=== PATIENT | male | born 1945 | race Caucasian/White ===

== ENCOUNTER 2016-07-14 07:31 | Day surgery (SDC) | payer OTHER ==
[~2016-07-14 07:31] MED LIST: ACETAMINOPHEN 325 MG TABLET PO PRN; ACETYLCHOLINE CHLORIDE 20 DROP KIT IO PRN; BUPIVACAINE HCL/PF 30 ML VIAL IJ PRN; CYCLOPENTOLATE HCL 20 DROP BTL RIGHTEYE PRN; DEXTROSE 5%-0.5 NORMAL SALINE 1,000 ML IV PRN; EPINEPHrine 1 MG/ML AMPUL IO PRN; HYALURONATE SODIUM 0.4 ML DISP.SYRIN IO PRN; HYALURONATE SODIUM 0.85 ML DISP.SYRIN IO PRN; LIDOCAINE HCL/PF 200 MG/5 ML AMPUL TP PRN; LIDOCAINE HCL/PF 5 ML VIAL IO PRN; NORMAL SALINE 3 ML BOX IV PRN; TETRACAINE HCL 150 DROP BTL OP PRN
--- OUTSIDE RECORDS SUMMARY | 2016-07-14 07:36 | XMS REPORT | Continuity of Care Document ---
:1945 Author Organization [facility] [place] [address] Care Team Providers Name Role Phone Kirsty Bauman Primary Care Provider [phone] Source Comments This disclosure is being made pursuant to the Virtual Call Center program and may contain all information available regarding this patient.[facility] Active Allergies and Adverse Reactions Allergen Noted Date Severity Reactions Comments Tylenol 12/12/2015 Other (See Comments) With codiene Current Medications Be aware that medications may not be up to date as of this document. Alwaysverify current medications with the patient. Prescription Sig. Disp. Refills Start Date End Date Status lisinopril (PRINIVIL,ZESTRIL) Take 20 mg by Active 20 MG tablet mouth 2 (two) times daily. simvastatin (ZOCOR) 20 MG Take 20 mg by Active tablet mouth nightly. gabapentin (NEURONTIN) 300 MG Take 300 mg by 12/04/2015 Active capsule mouth 2 (two) times daily. nabumetone (RELAFEN) 750 MG Take 750 mg by 12/11/2015 Active tablet mouth nightly. omeprazole (PRILOSEC) 20 MG Take 20 mg by 01/21/2016 Active capsule mouth daily. hydrochlorothiazide 04/18/2016 Active (HYDRODIURIL) 12.5 MG tablet Active Problems Not on file Most Recent Encounters Date Type Specialty Providers Description 07/10/2016 Office Visit Neurosurgery Trevon Cote Jr., Spinal stenosis , lumbar MD region, without neurogenic claudication (Primary Dx); Osteoarthritis of spine with radiculopathy, lumbar region 06/12/2016 Office Visit Neurosurgery Trevon Cote Jr., Spinal stenosis , lumbar MD region, without neurogenic claudication (Primary Dx); Osteoarthritis of spine with radiculopathy, lumbar region 06/09/2016 Telephone Neurosurgery Brenda Bowling, [employer] Other Social History Tobacco Use Types Packs/Day Years Used Date Current Every Day Smoker Smokeless Tobacco: Former User Tobacco Cessation:Ready to Quit: No; Counseling Given: Yes Comments: Alcohol Use Drinks/Week oz/Week Comments Yes Last Filed Vital Signs Vital Sign Reading Time Taken Blood Pressure 138/80 07/10/2016 2:59 PM CDT Pulse 88 07/10/2016 2:59 PM CDT Temperature 36.3 C (97.4 F) 12/12/2015 11:03 AM CDT Respiratory Rate 12 07/10/2016 2:59 PM CDT Height 1.753 m (5' 9") 07/10/2016 2:59 PM CDT Weight 70.308 kg (155 lb) 07/10/2016 2:59 PM CDT Body Mass Index 22.88 07/10/2016 2:59 PM CDT Oxygen Saturation - - Plan of Care Date Type Specialty Providers Description 09/29/2016 Appointment Neurosurgery Trevon Cote Jr., MD [address] [place] [phone] (Fax) Health Maintenance Due Date Last Done Comments Hepatitis C Screening 07/29/1965 Tetanus/Pertussis (1 - Tdap) 07/29/1966 Colonoscopy 07/29/1997 Well Adult Visit 07/29/1997 Zoster Vaccine 60+ 2007 AAA Screening (Medicare Covered) 07/29/2012 Pneumococcal Low/Medium Risk 65+ (1 of 2 - PCV13) 07/29/2012 Influenza Immunization (#1) 2015 Procedures from Last 3 Months Procedure Name Priority Date/Time Associated Diagnosis Comments LUMBAR EPIDURAL Routine 06/17/2016 12:00 AM Spinal stenosis, lumbar STEROID INJECTION CDT region, without neurogenic claudication Osteoarthritis of spine with radiculopathy, lumbar region Results from Last 3 Months Lumbar epidural steroid injection (06/17/2016)
--- OUTSIDE RECORDS SUMMARY | 2016-07-14 07:36 | XMS REPORT | Continuity of Care Document ---
:1945 Author Organization [facility] ([facility]) Address [place] [address] Phone [phone] Care Team Providers Name Role Phone Provider, No-Primary Care Primary Care Provider Unavailable Source Comments This disclosure is being made pursuant to the Care Everywhere program, applicable federal and state laws, and may not contain all informaitonavailable regarding this patient.[facility] ([facility]) Active Allergies and Adverse Reactions Not on File Current Medications Not on file Active Problems Not on file Social History Tobacco Use Types Packs/Day Years Used Date Never Assessed Plan of Care Health Maintenance Due Date Last Done Comments HCV Screening 1945 Hepatitis B Vaccine (1 of 3 - Primary Series) 1945 Tdap Vaccine 07/29/1958 Lipid Disorder Screening 07/29/1965 Td Vaccine 07/29/1965 Colonoscopy 07/29/1997 Prostate Cancer Screening 07/29/1997 Zoster Vaccine 2007 Pneumococcal Vaccine (1 of 2 - PCV13) 07/29/2012 Influenza Vaccine: Seasonal (#1) 10/01/2015 Results from Last 3 Months Not on file
[2016-07-14] MEDS ORDERED: DEXTROSE 5%-0.5 NORMAL SALINE 1,000 ML IV ONE (08:00)
[2016-07-14] MEDS: PHENYLEPHRINE HCL 50 DROP BTL RIGHTEYE PRN ×3 (08:04→08:26)
[2016-07-14] MEDS: TROPICAMIDE 150 DROP BTL RIGHTEYE PRN ×3 (08:04→08:26)
[2016-07-14] MEDS ORDERED: MOXIFLOXACIN HCL RIGHTEYE SCH (09:30)
[2016-07-14 10:52] VITALS: BP 123/72
== END 2016-07-14 07:32 | disposition home or self-care (01) ==
LOC: AMB 07:31
PROVIDERS: ATTEND Ophthalmology
PROC: 08RJ3JZ Replacement of Right Lens with Synthetic Substitute, Percutaneous Approach (ICD-10-PCS; principal; 2016-07-14 08:40)
DX: H26.9 Unspecified cataract (principal); I10 Essential (primary) hypertension; E78.00 Pure hypercholesterolemia, unspecified; Z68.22 Body mass index [BMI] 22.0-22.9, adult

== ENCOUNTER 2016-08-11 08:09 | Day surgery (SDC) | payer OTHER ==
[~2016-08-11 08:09] MED LIST changes: +CYCLOPENTOLATE HCL 20 DROP BTL LEFTEYE PRN; -CYCLOPENTOLATE HCL 20 DROP BTL RIGHTEYE PRN
--- OUTSIDE RECORDS SUMMARY | 2016-08-11 08:14 | XMS REPORT | Continuity of Care Document ---
:1945 Author Organization [id number] [place] [address] Care Team Providers Name Role Phone Kirsty Bauman Primary Care Provider [phone] Source Comments This disclosure is being made pursuant to the [email or web address] program and maynot contain all information available regarding this patient.[facility] Active Allergies and Adverse Reactions Allergen Noted [...] Recent Encounters Date Type Specialty Providers Description 08/01/2016 Telephone Neurosurgery Lauren Strong LPN Other 07/10/2016 Office Visit Neurosurgery Trevon Cote Jr., Spinal stenosis , lumbar MD region, without neurogenic claudication (Primary Dx); Osteoarthritis of spine with radiculopathy, lumbar region 06/12/2016 Office Visit Neurosurgery Trevon Cote Jr., Spinal stenosis , lumbar MD region, without neurogenic claudication (Primary Dx); Osteoarthritis of spine with radiculopathy, lumbar region 06/09/2016 Telephone Neurosurgery Brenda Bowling, ROBYN Other Social History Tobacco Use Types Packs/Day [...] 09/29/2016 Appointment Neurosurgery Trevon Cote Jr., MD [address] [place] [phone] (Fax) Health Maintenance Due Date Last Done [...]
--- OUTSIDE RECORDS SUMMARY | 2016-08-11 08:14 | XMS REPORT | Continuity of Care Document ---
:1945 Author Organization [facility] ([facility]) Address [place] [address] Phone [phone] Care Team Providers Name Role Phone Provider, No-Primary Care Primary Care Provider Unavailable Source Comments This disclosure is being made pursuant to the Care Everywhere program, applicable federal and state laws, and may not contain all informaitonavailable regarding this patient.[facility] ([facility]) Active Allergies and Adverse Reactions Not on [...]
[2016-08-11] MEDS: TROPICAMIDE 150 DROP BTL LEFTEYE PRN ×3 (08:37→09:04)
[2016-08-11] MEDS: PHENYLEPHRINE HCL 50 DROP BTL LEFTEYE PRN ×3 (08:38→09:03)
[2016-08-11] MEDS ORDERED: DEXTROSE 5%-0.5 NORMAL SALINE 1,000 ML IV ONE (08:45)
[2016-08-11 11:02] VITALS: BP 128/73
== END 2016-08-11 08:10 | disposition home or self-care (01) ==
LOC: AMB 08:09
PROVIDERS: ATTEND Ophthalmology
PROC: 08RK3JZ Replacement of Left Lens with Synthetic Substitute, Percutaneous Approach (ICD-10-PCS; principal; 2016-08-11 09:20)
DX: H26.9 Unspecified cataract (principal); I10 Essential (primary) hypertension; E78.5 Hyperlipidemia, unspecified; J44.9 Chronic obstructive pulmonary disease, unspecified; K21.9 Gastro-esophageal reflux disease without esophagitis; Z68.22 Body mass index [BMI] 22.0-22.9, adult